=== PATIENT | female | born 1970 | race Two or more races ===

== ENCOUNTER 2021-12-19 09:54 | Emergency (ER) | payer OTHER ==
[~2021-12-19] VITALS: Ht 162.6 cm; Wt 56.7 kg
[2021-12-19] MEDS ORDERED: PEPCID AC20 MG PO (17:57)
[2021-12-19] MEDS ORDERED: CIPRO500 MG PO (17:57)
== END 2021-12-19 18:07 | disposition home or self-care (01) ==
LOC: ER 09:54
DX: K50.00 Crohn's disease of small intestine without complications (principal); R10.84 Generalized abdominal pain; Z88.6 Allergy status to analgesic agent